=== PATIENT | male | born 1955 | race Caucasian/White ===

== ENCOUNTER → 2021-01-10 13:40 | Outpatient (BNVA) | payer BC, SELFPAY | PROVIDERS: Visit Provider Internal Medicine Cardiovascular Disease | DX: E78.5 Hyperlipidemia, unspecified (principal) | CPT/HCPCS: 93005 ==

== ENCOUNTER → 2023-01-09 14:02 | Outpatient (BNVA) | payer BC, SELFPAY | PROVIDERS: Visit Provider Internal Medicine Cardiovascular Disease | DX: E78.5 Hyperlipidemia, unspecified (principal) | CPT/HCPCS: 93005 ==

== ENCOUNTER → 2023-12-27 08:46 | Outpatient (REF) | payer BC, SELFPAY ==
--- NOTE | 2023-12-27 08:54 | CA_ITS ---
Acquisition Time: 2023-12-27 09:18:43 Total Exercise Time: 00:09:30 Test Indications: CHEST PAIN Medications: ASA ATORVASTATIN TADAFIL Protocol: JENA Max HR: 151 BPM 100% of Pred: 151 BPM Max BP: 180/082 mmHG Max Work Load: 10.9 METS Exercise stress test exercise 9 min 30 sec of Jena protocol achieving 100% MPHR, without SOB, 2-3/10 ongoing chest discomfort in recovery .0/10 during exercise, with isolated PVCs, with ventricular bigeminy, with normotensive response to exercise, without EKG changes. Test reviewed with Dr. Whitfield, Referred By: Raffy Acevedo Overread By: Ani Reich
== END ==
LOC: HO.CARD 08:46
PROVIDERS: Visit Provider Internal Medicine Cardiovascular Disease
DX: R07.89 Other chest pain (principal); E78.5 Hyperlipidemia, unspecified
CPT/HCPCS: 93017

== ENCOUNTER → 2023-12-27 08:54 | Outpatient (BNV) | payer BC, SELFPAY | PROVIDERS: Visit Provider Nurse Practitioner | DX: R07.89 Other chest pain (principal) | CPT/HCPCS: 93016; 93018 ==

== ENCOUNTER 2025-03-05 10:28 | Outpatient (AMB) | payer BC, SELFPAY ==
--- NOTE | 2025-03-05 10:31 | MHC.OFFVIS ---
Vital Signs 03/05/25 10:32 Height 5 ft 11 in Weight 191 lb 12.835 oz BMI 26.7 BP 112/74 Blood Pressure Location Lt brachial Position Sitting Pulse 60 Intake Visit Reasons: 2 yrs followup w/ekg dx: hyperlipidemia Intake Note: 2 year follow-up with ekg feeling good [employer] Required: No Allergies No Known Allergies Allergy (Unverified 07/29/20 14:49) Medication List - Last Reconciled 03/05/25 by Raffy Acevedo MD amoxicillin 1,000 mg PO BID PRN atorvastatin 40 mg PO DAILY cholecalciferol (vitamin D3) 25 mcg PO DAILY omega-3 fatty acids (Fish Oil Concentrate) 1,000 mg PO DAILY tadalafil 20 mg PO .a week vitamin B complex (B Complex-Vitamin B12 tablet) 1 tab PO DAILY HPI Comments Details: Regis comes for follow-up after 2 years. He said he has been doing well well. He has been exercising regularly till he had injury recently to his right knee which has limited his exercise activity. Prior to that he was hiking walking doing rowing. He was no exertional symptoms of chest pain or shortness of breath. He said his most recent lipid panel through his primary care physician's office was within normal limits. I does not not have a copy of the results. He denies any palpitations. No orthopnea, PND, leg edema. No lightheadedness, syncope. [facility] Medical History Hyperlipidemia Surgical History Hx of prostatectomy Family History Father No problems noted. Mother No problems noted. Review of Systems Const Denies chills, Denies fatigue, Denies fever(s), Denies frequent falls, Denies weakness, Denies weight gain and Denies weight loss ENT Denies dizziness Card Denies chest pain, Denies leg edema, Denies lightheadedness, Denies palpitations, Denies dyspnea, Denies dyspnea on exertion, Denies orthopnea and Denies other (loss of consciousness) Resp Denies cough, Denies dyspnea and Denies dyspnea on exertion GI Denies hematochezia and Denies change in stool character Musc Denies abnormal gait, Denies muscle weakness, Denies numbness, Denies radiating pain into limb and Denies tingling Neuro Denies abnormal gait, Denies dizziness, Denies frequent falls, Denies numbness, Denies tingling and Denies weakness Endo Denies fatigue and Denies palpitations Physical Exam Vital Signs: Last Vital Signs Pulse 60 03/05/25 10:32 BP 112/74 03/05/25 10:32 BMI result Body Mass Index 26.7 Const General: cooperative, comfortable, no acute distress and awake Nutritional Appearance: average body habitus Orientation/consciousness: patient oriented x3 Limitations: no limitations Neck Neck: Yes trachea midline, Yes supple and Yes no JVD Carotids: no bruits Chest Chest palpation & inspection: normal inspection of the chest Resp Effort & Inspection: normal respiratory effort Auscultation: clear to auscultation bilaterally Cardio Jugular venous distension: no JVD Palpation: normal PMI Rate: regular rate Rhythm: regular rhythm Heart sounds: S1 normal heart sound present and S2 normal heart sound present GI Auscultation: normal bowel sounds Neuro General: patient oriented x3 and no focal motor deficits Extrem General: Yes no clubbing, cyanosis or edema Psych Appearance: grossly normal Office Procedures EKG Details: EKG shows normal sinus rhythm normal EKG [id number], Complete Assessment & Plan Assessment & Plan (1) Hyperlipidemia: Code(s): E78.5 - Hyperlipidemia, unspecified Category: Medical Plan: Patient was familial hyperlipidemia well controlled on atorvastatin therapy. He has coronary calcium score 4 years ago was 0. Can repeat another coronary calcium score in 1 year's time. Will leave it up to his discretion. He is currently not having any cardiac symptoms. Encouraged to continue maintain activity level as tolerated. Symptoms associated with cardiovascular disease were discussed. Continue atorvastatin therapy. Will follow up in the clinic in 2 years time on his request. Thank you for allowing me to partake in his care Coding Level of Care Code Est Pt Level 4 (87672) Complex EM visit Add On G2211 Diagnoses Hyperlipidemia E78.5 CPT Codes EKG - CPT: 93406-[id number], Complete ([id number])
[2025-03-05 10:32] VITALS: BP 112/74; PULSE 60; BMI 26.7
== END 2025-03-05 11:15 | disposition home or self-care (01) ==
LOC: HO.HCS 10:29
PROVIDERS: Visit Provider Internal Medicine Cardiovascular Disease
DX: E78.5 Hyperlipidemia, unspecified (principal)
CPT/HCPCS: 93010; 99214

== ENCOUNTER → 2025-03-05 10:28 | Outpatient (BNVA) | payer BC, SELFPAY | PROVIDERS: Visit Provider Internal Medicine Cardiovascular Disease | DX: E78.5 Hyperlipidemia, unspecified (principal); Z79.899 Other long term (current) drug therapy | CPT/HCPCS: 93005 ==